=== PATIENT | male | born 1960 | race African-American/Black ===

== ENCOUNTER 2018-02-20 02:45 | Emergency (ER) | payer MEDICARE ==
[2018-02-20] MEDS ORDERED: Lidocaine 1% 20 ML MDV ONE (02:59)
[2018-02-20] MEDS ORDERED: Bacitracin Zinc 1 Packet ONE (02:59)
--- NOTE | 2018-02-20 18:51 | CT ---
PRELIMINARY REPORT/[facility]/EMERGENTY AFTER-HOURS PROCEDURE CT Head Without Intravenous Contrast EXAM DATE/TIME: 02/20/2018 3:30 AM CLINICAL HISTORY: 58 years old, male; Injury or trauma; Fall; Initial encounter; Laceration; Without loss of consciousn ess; Without residual foreign body; Eye; Left; Injury date: 02/20/2018; Injury details: Fall. Hit hea d on window sill TECHNIQUE: Axial computed tomography images of the head/brain without intravenous contrast. Coronal and sagittal reformatted images were created and reviewed. COMPARISON: No relevant prior studies available. FINDINGS: Brain: No evidence of acute intracranial hemorrhage, extraxial fluid or midline shift. Mild prominenc e of the cerebral sulci and ventricles. Cerebellum atrophic; otherwise, posterior fossa structures wi thin normal limits. Chronic-appearing, subcentimeter lacunar infarctions left internal capsule. No signifi cant white matter disease. Ventricles: See above. Bones/joints: Unremarkable. No acute fracture. Soft tissues: Mild left periorbital soft tissue swelling/hematoma. Sinuses: Unremarkable as visualized. No acute sinusitis. Mastoid air cells: Unremarkable as visualized. No mastoid effusion. IMPRESSION: 1. No evidence of acute intracranial hemorrhage, extraxial fluid or midline shift. 2. Mild left periorbital soft tissue swelling/hematoma. 3. Mild cerebral atrophy. Thank you for allowing us to participate in the care of your patient. Dictated and Authenticated by: Abdoulaye Casanova MD 02/20/2018 4:41 AM Central Time ([place] & [place]) FINAL REPORT EMERGENT AFTER HOURS CT BRAIN: IMPRESSION: Agree with the preliminary interpretation given by [facility]. No evidence for intracranial hemorrhage or m ass effect. POS: [facility]
--- NOTE | 2018-02-20 18:53 | CT ---
PRELIMINARY REPORT/[facility]/EMERGENTY AFTER-HOURS PROCEDURE CT Cervical Spine Without Intravenous Contrast EXAM DATE/TIME: 02/20/2018 3:35 AM CLINICAL HISTORY: 58 years old, male; Injury or trauma; Fall; Initial encounter; Laceration; Without foreign body; Inju ry date: 02/20/2018; Injury details: Fell and hit head on window sill TECHNIQUE: Axial computed tomography images of the cervical spine without intravenous contrast. All CT scans at this facility use one or more dose reduction techniques, viz.: automated exposure control; ma/Kv adju stment per patient size (including targeted exams where dose is matched to indication; i.e. head); or iterative reconstruction technique. Coronal and sagittal reformatted images were created and reviewe d. COMPARISON: No relevant prior studies available. FINDINGS: Vertebrae: No evidence of acute fracture. Multilevel anterior osteophytosis. Mild narrowing, sclerosi s and posterior uncovertebral osteophyte formation particularly at C2-3,C3-4, C4-5 levels consistent with cervical spondylosis. Multilevel bilateral facet sclerosis. Cervical spine is anatomically align ed with minimal leftward spinal curvature. Discs/spinal canal/neural foramina: See above. Soft tissues: Unremarkable. Lung apices: Unremarkable as visualized. IMPRESSION: 1. No evidence of acute fracture. 2. Multilevel cervical spondylosis and facet osteoarthrosis as described above consistent with chroni c degenerative changes. 3. Minimal leftward cervical spine curvature - possibly normal for patient, positional or underlying muscle spasm. Thank you for allowing us to participate in the care of your patient. Dictated and Authenticated by: Abdoulaye Casanova MD 02/20/2018 4:55 AM Central Time ([place] & [place]) FINAL REPORT EMERGENT AFTER HOURS CT CERVICAL SPINE: IMPRESSION: Agree with the preliminary interpretation given by [facility]. No evidence for fracture or traumatic sublux ation. POS: [facility]
== END 2018-02-20 05:12 | disposition home or self-care (01) ==
LOC: NAV ERS 02:45
DX: S01.112A Laceration without foreign body of left eyelid and periocular area, initial encounter (principal); F32.9 Major depressive disorder, single episode, unspecified; F10.129 Alcohol abuse with intoxication, unspecified; E03.9 Hypothyroidism, unspecified; E11.9 Type 2 diabetes mellitus without complications; W01.198A Fall on same level from slipping, tripping and stumbling with subsequent striking against other object, initial encounter
CPT/HCPCS: 12011; 70450; 72125; J2001

== ENCOUNTER 2018-04-14 10:22 | Emergency (ER) | payer MEDICARE ==
[2018-04-14] MEDS ORDERED: cefTRIAXone\\ROCEPHIN 250 MG VIAL ONE (11:02)
[2018-04-14] MEDS ORDERED: Fluconazole 100 MG TAB ONE (11:02)
[2018-04-14] MEDS ORDERED: Lidocaine 1% 20 ML MDV ONE (11:02)
[2018-04-14 11:56] LABS: Bilirubin Small (Negative); Blood, Urine Moderate (Negative); Clarity Clear (Clear); Glucose, Urine (Dipstick) 500 mg/dL (Negative); Leukocyte Small (Negative); Nitrite Negative (Negative); Protein, Urine (Dipstick) 100 mg/dL (Neg-Trace); Specific Gravity, Urine 1.025 (1.005-1.030); Urobilinogen 0.2 mg/dL (0.2-1.0); pH, Urine 5.5 (5.0-9.0)
[2018-04-14 12:02] LABS: Bacteria/HPF Rare-Few HPF (None Seen); Other Microscopic Description NO; Squamous Epithelial 0-3 HPF (0-3)
== END 2018-04-14 12:18 | disposition home or self-care (01) ==
LOC: NAV ERS 10:22
DX: A64 Unspecified sexually transmitted disease (principal); N48.1 Balanitis
CPT/HCPCS: 81003; 81015; 96372; J0696; J2001

== ENCOUNTER 2020-09-06 08:21 | Outpatient (CLI) | payer MEDICARE ==
[2020-09-06] MEDS ORDERED: Iopamidol 370 76% 100 ML VIAL ONE (09:00)
[2020-09-06 09:04] LABS: Calc. Creatinine Clearance 0 mL/min (70-130); Estimated GFR-MDRD Greater than 90
--- NOTE | 2020-09-06 10:10 | CT ---
CT neck soft tissues with contrast: Power scribe today HISTORY: 60-year-old male with left supraclavicular mass found on thyroid ultrasound. At 9:54 AM 09/06/2020, Dr. Guerrier sent a [employer] text message regarding the findings and recommend ation to Dr. Wilber Garcia. COMPARISON: Noncontrast CT cervical spine of 02/20/2018. FINDINGS: There is a very large approximately 6.5 x 6.5 x 4.5 cm heterogeneously enhancing infiltrative tumor m ass in the left supraclavicular region. The far lateral portion involves the left anterior subcutaneous fat, causing a bulge from the skin surface. It anteriorly displaces the left sternocleid omastoid muscle, medially displaces the left common carotid artery, and severely narrows and compresses the left internal jugular vein, causing almost occlusion. The mass completely surrounds an d severely narrows the left subclavian vein. The mass abuts the anterior and superior surfaces of the left subclavian artery, which is significantly displaced posteriorly. This mass is in close proxi mity, and questionably in contact, with a lobular left apical pulmonary mass which is only partially imaged. The imaged portions of this pulmonary mass are at least 4 x 4 centimeters, but it i s probably much larger than this. There are bilateral upper mediastinal necrotic lymph nodes. For example, right posterior upper paratr acheal mass is approximately 2.3 cm. Necrotic mediastinal mass splaying the left common carotid artery and left subclavian artery measures approximately 2 x 2.5 cm. There is a small 0.9 x 0.7 cm spiculated noncalcified apical segment right upper lobe pulmonary nodul e containing a tiny central cavitation. The supraclavicular mass abuts but does not invade the left lobe of thyroid gland. Bilateral thyroid gland lobes have smooth, well-circumscribed margins. Thyroid gland has diffusely he terogeneous enhancement and attenuation, which is nonspecific, and could represent Graves' disease, subacute thyroiditis, or multinodular goiter. Cervical trachea is patent and clear. Medialized, retropharyngeal courses of bilateral carotid arteries, including carotid bifurcations. No pathology identified involving submandibular, parotid, retropharyngeal, or after school program director, spaces. Multilevel degenerative disc disease in cervical spine. No destructive osseous lesion. IMPRESSION: 1.) Very large left supraclavicular infiltrative tumor mass. 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 2) that subclavicular mass severely narrows the left internal jugular vein and left subclavian vein. 3) partial visualization of a large left upper lobe pulmonary mass, which may represent primary lung cancer. 4) partially visualized necrotic upper mediastinal malignant lymphadenopathy. 5) at least one small right upper lobe apical segment cavitary pulmonary nodule. Probably metastasis.
== END 2020-09-06 08:22 | disposition home or self-care (01) ==
LOC: NAV CT 08:21
PROVIDERS: ATTEND Internal Medicine Hematology & Oncology
DX: D50.0 Iron deficiency anemia secondary to blood loss (chronic) (principal); R22.1 Localized swelling, mass and lump, neck; M89.8X1 Other specified disorders of bone, shoulder; R91.8 Other nonspecific abnormal finding of lung field; R91.1 Solitary pulmonary nodule; R59.0 Localized enlarged lymph nodes
CPT/HCPCS: 36415; 70491; 82565; Q9967

== ENCOUNTER 2020-10-22 16:15 | Emergency (ER) | payer MEDICARE ==
[2020-10-22] MEDS ORDERED: Sodium Chloride 0.9% 1,000 ML ONE (17:35)
[2020-10-22 17:39] LABS: INR-International Normal Ratio 0.9; Prothrombin Time 12.6 sec (12.0-14.7)
[2020-10-22 17:44] LABS: #Eosinphils 0.1 thou/uL (0.0-0.7); #Monocytes 0.6 thou/uL (0.11-0.59); #Neutrophils 7.5 thou/uL (1.40-6.50); %Basophils 0.5 % (0.0-1.0); %Eosinophils 0.9 % (0.0-10.0); %Lymphocytes 11.2 % (21.0-51.0); %Monocytes 6.3 % (0.0-10.0); %Neutrophils 81.1 % (42.0-75.0); Hemoglobin 9.7 g/dL (14.0-18.0); Mean Corpuscular HGB CONC 29.9 g/dL (32.0-36.0); Mean Corpuscular Hemoglobin 19.6 pg (27.0-31.0); Mean Corpuscular Volume 65.4 fL (78.0-98.0); Mean Platelet Volume 5.7 fL (7.4-10.4); Platelet Count 356 thou/uL (130-400); RBC Distribution Width 15.6 % (11.5-14.5); Red Blood Cell (RBC) Count 4.94 mill/uL (4.70-6.10); White Blood Cell (WBC) Count 9.3 thou/uL (4.8-10.8)
[2020-10-22 17:48] LABS: ALT (SGPT) 8 U/L (8-55); AST (SGOT) 8 U/L (5-34); Albumin 3.6 g/dL (3.5-5.0); Alkaline Phosphatase 111 U/L (40-110); Anion Gap 16 mmol/L (10-20); BUN (Urea Nitrogen) 12 mg/dL (8.4-25.7); Bilirubin, Total 0.4 mg/dL (0.2-1.2); Calc. Creatinine Clearance 0 mL/min (70-130); Calcium 10.6 mg/dL (7.8-10.44); Carbon Dioxide 26 mmol/L (22-29); Chloride 100 mmol/L (98-107); Globulin 4.2 g/dL (2.4-3.5); Glucose 110 mg/dL (70-105); Potassium 4.7 mmol/L (3.5-5.1); Protein, Total 7.8 g/dL (6.0-8.3); Sodium 137 mmol/L (136-145)
[2020-10-22 17:58] LABS: Large Platelets SLIGHT; MDiff Complete? YES; Microcytosis MODERATE=15-30 cells (100X) (0-5/hpf); Platelet Morphology Comment Appears Adequate; Poikilocytosis SLIGHT = 6-15 cells (100X) (0-5/hpf)
== END 2020-10-22 18:50 | disposition home or self-care (01) ==
LOC: NAV ERS 16:15
DX: R22.1 Localized swelling, mass and lump, neck (principal); D64.9 Anemia, unspecified; R00.0 Tachycardia, unspecified; L98.499 Non-pressure chronic ulcer of skin of other sites with unspecified severity; E11.39 Type 2 diabetes mellitus with other diabetic ophthalmic complication; H42 Glaucoma in diseases classified elsewhere; E03.9 Hypothyroidism, unspecified; E78.5 Hyperlipidemia, unspecified; E78.00 Pure hypercholesterolemia, unspecified; F17.210 Nicotine dependence, cigarettes, uncomplicated; Z85.118 Personal history of other malignant neoplasm of bronchus and lung; Z79.84 Long term (current) use of oral hypoglycemic drugs; Z79.899 Other long term (current) drug therapy
CPT/HCPCS: 36415; 80053; 83605; 85025; 85610; 85730; 86850; 86900; 86901; 99283; J7050

== ENCOUNTER 2020-11-08 03:07 | Emergency (ER) | payer MEDICARE | END 2020-11-08 03:56 | disposition home or self-care (01) | LOC: NAV ERS 03:07 | DX: C34.90 Malignant neoplasm of unspecified part of unspecified bronchus or lung (principal); R22.1 Localized swelling, mass and lump, neck; E11.9 Type 2 diabetes mellitus without complications; E03.9 Hypothyroidism, unspecified; E78.5 Hyperlipidemia, unspecified; Z87.891 Personal history of nicotine dependence | CPT/HCPCS: 99282 ==

== ENCOUNTER 2021-01-10 10:47 | Emergency (ER) | payer MEDICARE ==
[2021-01-10 12:46] LABS: #Basophils 0.1 thou/uL (0.0-0.2); #Eosinphils 0.1 thou/uL (0.0-0.7); #Lymphocytes 1.3 thou/uL (1.20-3.40); #Monocytes 0.9 thou/uL (0.11-0.59); #Neutrophils 8.4 thou/uL (1.40-6.50); %Basophils 0.5 % (0.0-1.0); %Eosinophils 0.5 % (0.0-10.0); %Lymphocytes 12.4 % (21.0-51.0); %Monocytes 8.3 % (0.0-10.0); %Neutrophils 78.3 % (42.0-75.0); Mean Corpuscular HGB CONC 29.4 g/dL (32.0-36.0); Mean Corpuscular Hemoglobin 20.2 pg (27.0-31.0); Mean Corpuscular Volume 68.7 fL (78.0-98.0); Mean Platelet Volume 5.4 fL (7.4-10.4); Platelet Count 371 thou/uL (130-400); RBC Distribution Width 20.8 % (11.5-14.5); Red Blood Cell (RBC) Count 3.98 mill/uL (4.70-6.10); White Blood Cell (WBC) Count 10.7 thou/uL (4.8-10.8)
== END 2021-01-10 13:36 | disposition home or self-care (01) ==
LOC: NAV ERS 10:47
DX: D64.9 Anemia, unspecified (principal); E11.9 Type 2 diabetes mellitus without complications; E78.5 Hyperlipidemia, unspecified; E78.00 Pure hypercholesterolemia, unspecified; E03.9 Hypothyroidism, unspecified; Z87.891 Personal history of nicotine dependence; Z79.84 Long term (current) use of oral hypoglycemic drugs; Z79.899 Other long term (current) drug therapy
CPT/HCPCS: 85025; 99283